=== PATIENT | male | born 1975 | race Caucasian/White ===

== ENCOUNTER → 2017-09-26 | Outpatient (CLI) | payer OTHER ==
[~2017-09-26] MED LIST: CEPHALEXIN500 M1 PO; IBUPROFEN600 MG PO; LISINOPRIL10 MG PO; LORTAB 5/500 501 TAB PO; NOMEDS *
[2017-09-26 12:51] LABS: BUN 12 mg/dL (7-18)
[2017-09-26 12:56] LABS: GFR (ESTIMATED) 106 ML/MIN (>60); LYMPH # 2.7 K/mm3 (0.7-4.5); LYMPH % 41.6 % (10-50)
[2017-09-26 13:40] LABS: URINE BILIRUBIN - DIPSTICK NEGATIVE (NEG); URINE BLOOD TRACE-INTACT (NEG)
== END ==
LOC: LAB 12:24
PROVIDERS: Surgery
DX: K40.90 Unilateral inguinal hernia, without obstruction or gangrene, not specified as recurrent (principal); Z01.818 Encounter for other preprocedural examination

== ENCOUNTER 2017-10-10 09:40 | Day surgery (SDC) | payer OTHER ==
[~2017-10-10] VITALS: Ht 180.3 cm; Wt 80.3 kg
--- NOTE | 2017-10-10 14:04 | Anesthesia Record ---
Anesthesia Record Part I Total IV fluids: 1000 EBL (ml): 10 Urine Output: 200 B/P: 115/60 % SaO2: 95 Pulse: 87 Resps: 16 Temp: 97.8 Patient is: Stable Stable to PACU at: 1203 at 1404
--- NOTE | 2017-10-10 14:05 | Anesthesia Record ---
Anesthesia Record Part II Discharge time: 1432 Destination: Same day surgery PACU nurse assessment review? Yes Patient is: Awake, Stable Anesthesia complications? No at 1408
--- NOTE | 2017-10-10 14:09 | Operative Note ---
Surgeon/Diagnoses Surgeon/Bicycle Racer(s) Date of procedure: 10/10/17 Surgeon: MD Mónica Swift Diagnoses Pre-op diagnosis: RIGHT inguinal hernia Post-op diagnosis Same Procedure Procedure Procedure: Open repair of RIGHT inguinal hernia Indications: DAVID LAWRENCE is a 42 year-old Male with a history of painful RIGHT groin bulge. Findings: Fairly large direct defect Procedure Description: After informed consent was obtained, the patient was taken to the operating room and placed in the supine position. General anesthesia was induced and his lower abdomen and groin/scrotum were prepped and draped in a sterile fashion. After infiltration of local anesthetic an oblique incision in the RIGHT groin was made with scalpel. The deeper subcutaneous tissue was dissected with cautery through Jesus Mnauel's fascia to the level of the external aponeurosis. The external aponeurosis was opened sharply to the level of the external ring. The contents of the canal were carefully elevated. A fairly large direct defect was encountered. An extra-large PreFix plug was secured in position with interrupted Ethibond. The overlying PreFix patch was then secured to the shelving edge inferiorly and the fascial margin superiorly. The external aponeurosis was reapproximated with running Vicryl. Jesus Manuel's fascia was reapproximated in a similar manner. Skin was closed with 4-0 Monocryl in a running subcuticular fashion. Steri-Strips were applied. The patient's anesthetic agents were reversed and he was extubated prior to transfer to recovery. EBL (ml): 10 Anesthesia: General Implants: PreFix Plug/Patch Complications: No immediate Specimens: None Disposition Disposition: Stable to recovery from where he will be discharged home. He will follow up in 1 -2 weeks. at 0513
[2017-10-10 15:39] VITALS: BP 104/62
[2017-10-10 18:38] LABS: URINE BILIRUBIN - DIPSTICK NEGATIVE (NEG); URINE BLOOD TRACE-INTACT (NEG)
== END 2017-10-10 15:10 | disposition home or self-care (01) ==
LOC: SDC 09:40
PROVIDERS: Surgery
PROC: 0YU50JZ Supplement Right Inguinal Region with Synthetic Substitute, Open Approach (ICD-10-PCS; principal; 2017-10-10 10:45)
DX: K40.90 Unilateral inguinal hernia, without obstruction or gangrene, not specified as recurrent (principal)
CPT/HCPCS: J0131; J2405; J2710